=== PATIENT | female | born 1970 | race Native Hawaiian/Other Pacific Islander ===

== ENCOUNTER 2018-01-24 19:01 | Emergency (ER) | payer OTHER ==
[~2018-01-24] VITALS: Ht 167.6 cm; Wt 72.6 kg
[2018-01-24] MEDS ORDERED: GABA300C2 PO (19:27)
[2018-01-24] MEDS ORDERED: INDO25CA21 PO (19:28)
[2018-01-24 20:48] VITALS: BP 124/82; TEMP 97.8
== END 2018-01-24 20:48 | disposition home or self-care (01) ==
LOC: ED 19:01
DX: G43.909 Migraine, unspecified, not intractable, without status migrainosus (principal)
CPT/HCPCS: 96372; 99283; J1020; J1885

== ENCOUNTER 2018-08-19 20:48 | Emergency (ER) | payer OTHER ==
[~2018-08-19] VITALS: Ht 167.6 cm; Wt 72.6 kg
[~2018-08-19 20:48] MED LIST: GABA300C2 PO; INDO25CA21 PO
[2018-08-19 22:55] VITALS: BP 118/72; TEMP 98.3
== END 2018-08-19 22:58 | disposition home or self-care (01) ==
LOC: ED 20:48
DX: M54.2 Cervicalgia (principal); G43.909 Migraine, unspecified, not intractable, without status migrainosus; M25.511 Pain in right shoulder
CPT/HCPCS: 96372; 99282; J2930